=== PATIENT | female | born 1985 | race Caucasian/White ===

== ENCOUNTER 2020-02-11 12:49 | Emergency (ER) | payer OTHER ==
[~2020-02-11] VITALS: Ht 152.4 cm; Wt 79.5 kg
[2020-02-11] MEDS ORDERED: BUSP5TAB20 PO (13:17)
[2020-02-11] MEDS ORDERED: PROZ10 PO (13:17)
[2020-02-11 13:33] LABS: COVID AG,FIA SOURCE NASOPHARYNGEAL
[2020-02-11 14:46] VITALS: BP 121/70
== END 2020-02-11 14:56 | disposition home or self-care (01) ==
LOC: EMS 12:49
DX: Z20.828 Contact with and (suspected) exposure to other viral communicable diseases (principal); Z87.891 Personal history of nicotine dependence; Z90.49 Acquired absence of other specified parts of digestive tract; Z88.1 Allergy status to other antibiotic agents
CPT/HCPCS: 87426

== ENCOUNTER 2024-07-01 14:13 | Emergency (ER) | payer MEDICAID, OTHER ==
[~2024-07-01] VITALS: Ht 149.9 cm; Wt 72.7 kg
[~2024-07-01 14:13] MED LIST: BUSP5TAB20 PO; FLUO10CA24 PO
[2024-07-01] MEDS ORDERED: ALBU2.5V39 NEB ×2 (14:17→15:19)
[2024-07-01] MEDS ORDERED: FERR325T27 PO (14:17)
[2024-07-01] MEDS ORDERED: OMEP-148 PO (14:17)
[2024-07-01 14:19] VITALS: TEMP 96.9
[2024-07-01] MEDS ORDERED: BENZ-227 PO (14:55)
[2024-07-01] MEDS ORDERED: PRED-554 PO (14:55)
[2024-07-01 15:00] VITALS: PULSE 92; RESP 18; O2SAT 97
[2024-07-01] MEDS: IPRATROPIUM BROMIDE 0.5 MG/2.5 ML NEB SOLUTION NEB ONE (15:02)
[2024-07-01] MEDS: ALBUTEROL SULFATE 2.5 MG/0.5 ML NEB SOLUTION NEB ONE (15:02)
[2024-07-01] MEDS: ALBUTEROL SULFATE HFA 90 MCG/PUFF 8 GM INHALER IH ONE (15:02)
[2024-07-01 15:15] VITALS: PULSE 94; RESP 18; O2SAT 99
[2024-07-01] MEDS ORDERED: NEBU-305 (15:19)
[2024-07-01] MEDS: PredniSONE 20 MG TABLET PO ONE (15:35)
[2024-07-01 15:45] VITALS: BP 110/63; PULSE 89; RESP 17; O2SAT 97
== END 2024-07-01 16:20 | disposition home or self-care (01) ==
LOC: EMS 14:13
DX: J45.909 Unspecified asthma, uncomplicated (principal); Z90.49 Acquired absence of other specified parts of digestive tract; Z79.899 Other long term (current) drug therapy
CPT/HCPCS: 99283; 94640; J7512; J3535